=== PATIENT | male | born 1960 | race African-American/Black ===

== ENCOUNTER 2023-01-03 15:33 | Inpatient (IN) | payer OTHER ==
[2023-01-03 16:23] VITALS: BMI 20.8
[2023-01-03] MEDS ORDERED: DICYCLOMINE HCL 10 MG CAPSULE PO PRN (16:36)
[2023-01-03] MEDS ORDERED: POLYETHYLENE GLYCOL (HEALTHYLAX) 3350 17 GM PACKET PO PRN (16:36)
[2023-01-03] MEDS ORDERED: MAG HYDROX/AL HYDROX/SIMETH 30 ML UNIT-DOSE CUP PO PRN (16:36)
[2023-01-03] MEDS ORDERED: BENZOCAINE/MENTHOL (CHLORASEPTIC ) LOZENGE MM PRN (16:36)
[2023-01-03] MEDS ORDERED: MAGNESIUM HYDROX 2400MG/30ML ORAL SUSPENSION 30 ML CUP PO PRN (16:36)
[2023-01-03] MEDS ORDERED: LOPERAMIDE HCL 2 MG CAPSULE PO PRN (16:36)
[2023-01-03] MEDS ORDERED: BENZONATATE 200 MG CAPSULE PO PRN (16:36)
[2023-01-03] MEDS ORDERED: BISMUTH SUBSALICYLATE 524 MG/30 ML PO PRN (16:36)
[2023-01-03] MEDS ORDERED: guaiFENesin 600 MG TABLET.ER (FP) PO PRN (16:36)
[2023-01-03] MEDS ORDERED: ONDANSETRON *ODT* 4 MG TABLET SL PRN (16:36)
[2023-01-03] MEDS ORDERED: NICOTINE POLACRILEX 2 MG GUM BUC PRN (16:36)
[2023-01-03] MEDS ORDERED: P-EPHED 60MG/TRIPROLIDI 2.5MG TABLET PO PRN (16:36)
[2023-01-03] MEDS: IBUPROFEN 600 MG TABLET (FP) PO PRN (17:50)
[2023-01-03] MEDS: MELATONIN 5 MG TABLETS PO SCH (22:13)
[2023-01-03] MEDS: THIAMINE HCL 100 MG TABLET (FP) PO SCH (22:13)
[2023-01-04] MEDS: IBUPROFEN 600 MG TABLET (FP) PO PRN ×2 (05:51→13:35)
[2023-01-04] MEDS: ACETAMINOPHEN 325 MG TABLET (FP) PO PRN (10:35)
[2023-01-04] MEDS: PRENATAL VITAMINS W/ FOLIC ACID TABLET (FP) PO SCH (10:35)
[2023-01-04 11:35] LABS: HEMATOCRIT 41.8 % (35.4-49); HEMOGLOBIN 14.2 GM/dL (11.7-16.9); MCH 32.7 pg (25.7-33.7); MEAN CELL VOLUME 96.3 fl (80-96); MEAN PLT VOLUME 8.1 fl (7.5-11.1); PLATELET COUNT 259 10^3/uL (134-434); RBC 4.35 M/mm3 (4.00-5.60); RDW 14.1 % (11.9-15.9); WHITE BLOOD COUNT 3.8 K/mm3 (4.0-10.0)
[2023-01-04 11:46] LABS: POTASSIUM 3.9 mmol/L (3.5-5.1)
[2023-01-04 11:51] LABS: BLOOD UREA NITROGEN 9.4 mg/dL (7-18)
[2023-01-04 11:54] LABS: ALBUMIN 3.7 g/dl (3.4-5.0)
[2023-01-04 11:55] LABS: CALCIUM 9.9 mg/dL (8.5-10.1)
[2023-01-04 11:58] LABS: CREATININE 0.8 mg/dL (0.55-1.3)
[2023-01-04 12:00] LABS: BILIRUBIN,TOTAL 1.1 mg/dL (0.2-1); TOT PROT 6.7 g/dl (6.4-8.2)
[2023-01-04] MEDS ORDERED: LORazepam 1 MG TABLET PO PRN (13:39)
[2023-01-04] MEDS: LORazepam 2 MG TABLET PO SCH ×2 (17:17→22:23)
[2023-01-04] MEDS: MELATONIN 5 MG TABLETS PO SCH (22:23)
[2023-01-04] MEDS: THIAMINE HCL 100 MG TABLET (FP) PO SCH (22:23)
[2023-01-05] MEDS: LORazepam 2 MG TABLET PO SCH ×4 (06:00→22:13)
[2023-01-05] MEDS: IBUPROFEN 600 MG TABLET (FP) PO PRN (06:01)
[2023-01-05] MEDS: PRENATAL VITAMINS W/ FOLIC ACID TABLET (FP) PO SCH (10:34)
[2023-01-05] MEDS: BACITRACIN 0.9 GM PACKET TP SCH (15:46)
[2023-01-05] MEDS: MELATONIN 5 MG TABLETS PO SCH (22:13)
[2023-01-05] MEDS: THIAMINE HCL 100 MG TABLET (FP) PO SCH (22:13)
[2023-01-06] MEDS: IBUPROFEN 600 MG TABLET (FP) PO PRN (05:30)
[2023-01-06] MEDS: LORazepam 1 MG TABLET PO SCH ×4 (05:43→22:09)
[2023-01-06] MEDS: PRENATAL VITAMINS W/ FOLIC ACID TABLET (FP) PO SCH (10:15)
[2023-01-06] MEDS: ACETAMINOPHEN 325 MG TABLET (FP) PO PRN (10:18)
[2023-01-06] MEDS: BACITRACIN 0.9 GM PACKET TP SCH ×2 (11:01→11:02)
[2023-01-06] MEDS: IBUPROFEN 400 MG TABLET (FP) PO PRN (17:56)
[2023-01-06] MEDS: THIAMINE HCL 100 MG TABLET (FP) PO SCH (22:08)
[2023-01-06] MEDS: MELATONIN 5 MG TABLETS PO SCH (22:08)
[2023-01-07] MEDS ORDERED: LORazepam 0.5 MG TABLET PO PRN
[2023-01-07] MEDS: LORazepam 0.5 MG TABLET PO SCH ×4 (05:51→22:07)
[2023-01-07] MEDS: ACETAMINOPHEN 325 MG TABLET (FP) PO PRN (10:07)
[2023-01-07] MEDS: BACITRACIN 0.9 GM PACKET TP SCH (10:07)
[2023-01-07] MEDS: PRENATAL VITAMINS W/ FOLIC ACID TABLET (FP) PO SCH (10:07)
[2023-01-07] MEDS: IBUPROFEN 600 MG TABLET (FP) PO PRN (17:34)
[2023-01-07] MEDS: THIAMINE HCL 100 MG TABLET (FP) PO SCH (22:07)
[2023-01-07] MEDS: MELATONIN 5 MG TABLETS PO SCH (22:07)
[2023-01-08] MEDS ORDERED: LORazepam 0.5 MG TABLET PO ONE (05:00)
[2023-01-08] MEDS: IBUPROFEN 400 MG TABLET (FP) PO PRN (05:42)
[2023-01-08 09:23] VITALS: BP 101/61; PULSE 76; RESP 16; TEMP 97.9
[2023-01-08] MEDS: BACITRACIN 0.9 GM PACKET TP SCH (09:40)
[2023-01-08] MEDS: PRENATAL VITAMINS W/ FOLIC ACID TABLET (FP) PO SCH (09:40)
== END 2023-01-08 10:15 | disposition home or self-care (01) | DRG 774 ==
LOC: YASAS 15:33 → Y3N 16:51
PROVIDERS: ADMIT Allergy & Immunology; ATTEND Surgery
PROC: HZ2ZZZZ Detoxification Services for Substance Abuse Treatment (ICD-10-PCS; principal; 2023-01-03)
DX: F10.230 Alcohol dependence with withdrawal, uncomplicated (principal); F14.20 Cocaine dependence, uncomplicated; F17.210 Nicotine dependence, cigarettes, uncomplicated; Z86.19 Personal history of other infectious and parasitic diseases
CPT/HCPCS: 36415; 80053; 85027; 86593; 86780; 87635

== ENCOUNTER 2023-03-04 17:56 | Inpatient (IN) | payer OTHER ==
[2023-03-04 18:44] VITALS: BMI 19.9
[2023-03-04] MEDS ORDERED: LOPERAMIDE HCL 2 MG CAPSULE PO PRN (19:20)
[2023-03-04] MEDS ORDERED: DICYCLOMINE HCL 10 MG CAPSULE PO PRN (19:20)
[2023-03-04] MEDS ORDERED: POLYETHYLENE GLYCOL (HEALTHYLAX) 3350 17 GM PACKET PO PRN (19:20)
[2023-03-04] MEDS ORDERED: NALOXONE HCL 0.4 MG/ML VIAL IM PRN (19:20)
[2023-03-04] MEDS ORDERED: IBUPROFEN 400 MG TABLET (FP) PO PRN (19:20)
[2023-03-04] MEDS ORDERED: NALOXONE HCL (KLOXXADO) 8 MG SPRAY NS PRN (19:20)
[2023-03-04] MEDS ORDERED: BENZONATATE 200 MG CAPSULE PO PRN (19:20)
[2023-03-04] MEDS ORDERED: guaiFENesin 600 MG TABLET.ER (FP) PO PRN (19:20)
[2023-03-04] MEDS ORDERED: ONDANSETRON *ODT* 4 MG TABLET SL PRN (19:20)
[2023-03-04] MEDS ORDERED: BISMUTH SUBSALICYLATE 524 MG/30 ML PO PRN (19:20)
[2023-03-04] MEDS ORDERED: BENZOCAINE/MENTHOL (CHLORASEPTIC ) LOZENGE MM PRN (19:20)
[2023-03-04] MEDS ORDERED: MAG HYDROX/AL HYDROX/SIMETH 30 ML UNIT-DOSE CUP PO PRN (19:20)
[2023-03-04] MEDS ORDERED: ACETAMINOPHEN 325 MG TABLET (FP) PO PRN (19:20)
[2023-03-04] MEDS: THIAMINE HCL 100 MG TABLET (FP) PO SCH (22:18)
[2023-03-04] MEDS: METHOCARBAMOL 500 MG TABLET PO PRN (22:18)
[2023-03-04] MEDS: hydrOXYzine PAMOATE 25 MG CAPSULE (FP) PO PRN (22:18)
[2023-03-04] MEDS: MELATONIN 5 MG TABLETS PO SCH (22:18)
[2023-03-05] MEDS: PRENATAL VITAMINS W/ FOLIC ACID TABLET (FP) PO SCH (09:41)
[2023-03-05 11:19] LABS: HEMATOCRIT 39.2 % (35.4-49); HEMOGLOBIN 13.3 GM/dL (11.7-16.9); MCH 32.7 pg (25.7-33.7); MCHC 33.9 g/dl (32.0-35.9); MEAN CELL VOLUME 96.5 fl (80-96); MEAN PLT VOLUME 8.5 fl (7.5-11.1); PLATELET COUNT 268 10^3/uL (134-434); RBC 4.07 M/mm3 (4.00-5.60); WHITE BLOOD COUNT 5.2 K/mm3 (4.0-10.0)
[2023-03-05 11:22] LABS: POTASSIUM 4.2 mmol/L (3.5-5.1)
[2023-03-05 11:27] LABS: ALBUMIN 3.4 g/dl (3.4-5.0); BLOOD UREA NITROGEN 14.2 mg/dL (7-18); CALCIUM 9.2 mg/dL (8.5-10.1)
[2023-03-05 11:31] LABS: BILIRUBIN,TOTAL 0.9 mg/dL (0.2-1)
[2023-03-05 11:33] LABS: TOT PROT 6.8 g/dl (6.4-8.2)
[2023-03-05] MEDS ORDERED: LORazepam 1 MG TABLET PO PRN (13:36)
[2023-03-05] MEDS: MAGNESIUM HYDROX 2400MG/30ML ORAL SUSPENSION 30 ML CUP PO PRN (14:14)
[2023-03-05] MEDS: hydrOXYzine PAMOATE 25 MG CAPSULE (FP) PO PRN (14:14)
[2023-03-05] MEDS: LORazepam 2 MG TABLET PO SCH ×2 (17:16→18:05)
[2023-03-05] MEDS ORDERED: LORazepam 1 MG TABLET PO SCH (17:21)
[2023-03-05] MEDS: MELATONIN 5 MG TABLETS PO SCH (22:08)
[2023-03-05] MEDS: THIAMINE HCL 100 MG TABLET (FP) PO SCH (22:08)
[2023-03-06] MEDS: LORazepam 1 MG TABLET PO SCH ×4 (05:30→22:02)
[2023-03-06] MEDS: PRENATAL VITAMINS W/ FOLIC ACID TABLET (FP) PO SCH (10:08)
[2023-03-06] MEDS: METHOCARBAMOL 500 MG TABLET PO PRN (10:08)
[2023-03-06] MEDS: hydrOXYzine PAMOATE 25 MG CAPSULE (FP) PO PRN (10:08)
[2023-03-06] MEDS: MAGNESIUM HYDROX 2400MG/30ML ORAL SUSPENSION 30 ML CUP PO PRN (17:06)
[2023-03-06] MEDS: THIAMINE HCL 100 MG TABLET (FP) PO SCH (22:02)
[2023-03-06] MEDS: MELATONIN 5 MG TABLETS PO SCH (22:03)
[2023-03-06] MEDS: IBUPROFEN 600 MG TABLET (FP) PO PRN (22:05)
[2023-03-07] MEDS: LORazepam 0.5 MG TABLET PO SCH ×4 (05:23→22:00)
[2023-03-07] MEDS: METHOCARBAMOL 500 MG TABLET PO PRN (10:11)
[2023-03-07] MEDS: PRENATAL VITAMINS W/ FOLIC ACID TABLET (FP) PO SCH (10:11)
[2023-03-07] MEDS: MAGNESIUM HYDROX 2400MG/30ML ORAL SUSPENSION 30 ML CUP PO PRN (12:46)
[2023-03-07 16:50] VITALS: PULSE 63; RESP 17
[2023-03-07] MEDS: IBUPROFEN 600 MG TABLET (FP) PO PRN (21:59)
[2023-03-07] MEDS: MELATONIN 5 MG TABLETS PO SCH (22:00)
[2023-03-07] MEDS: THIAMINE HCL 100 MG TABLET (FP) PO SCH (22:00)
[2023-03-08] MEDS ORDERED: LORazepam 0.5 MG TABLET PO ONE (05:00)
[2023-03-08 06:32] VITALS: BP 108/75; TEMP 97.8
[2023-03-08] MEDS: PRENATAL VITAMINS W/ FOLIC ACID TABLET (FP) PO SCH (09:05)
== END 2023-03-08 09:08 | disposition home or self-care (01) | DRG 897 ==
LOC: YASAS 17:56 → Y6N 19:29
PROVIDERS: ADMIT Allergy & Immunology; ATTEND Surgery
PROC: HZ2ZZZZ Detoxification Services for Substance Abuse Treatment (ICD-10-PCS; principal; 2023-03-04)
DX: F10.230 Alcohol dependence with withdrawal, uncomplicated (principal); F14.20 Cocaine dependence, uncomplicated; F17.210 Nicotine dependence, cigarettes, uncomplicated; G47.00 Insomnia, unspecified
CPT/HCPCS: 36415; 80053; 85027; 86593; 86780; 87635; 87811

== ENCOUNTER 2023-04-06 16:49 | Inpatient (IN) | payer OTHER ==
[2023-04-06 17:23] VITALS: BMI 22.1
[2023-04-06] MEDS ORDERED: P-EPHED 60MG/TRIPROLIDI 2.5MG TABLET PO PRN (20:40)
[2023-04-06] MEDS ORDERED: BENZONATATE 200 MG CAPSULE PO PRN (20:40)
[2023-04-06] MEDS ORDERED: MAG HYDROX/AL HYDROX/SIMETH 30 ML UNIT-DOSE CUP PO PRN (20:40)
[2023-04-06] MEDS ORDERED: COLLOIDAL OATMEAL 1 BAR EACH TP PRN (20:40)
[2023-04-06] MEDS ORDERED: ACETAMINOPHEN 325 MG TABLET (FP) PO PRN (20:40)
[2023-04-06] MEDS ORDERED: POLYETHYLENE GLYCOL (HEALTHYLAX) 3350 17 GM PACKET PO PRN (20:40)
[2023-04-06] MEDS ORDERED: BENZOCAINE/MENTHOL (CHLORASEPTIC ) LOZENGE MM PRN (20:40)
[2023-04-06] MEDS ORDERED: LOPERAMIDE HCL 2 MG CAPSULE PO PRN (20:40)
[2023-04-06] MEDS ORDERED: guaiFENesin 600 MG TABLET.ER (FP) PO PRN (20:40)
[2023-04-06] MEDS: THIAMINE HCL 100 MG TABLET (FP) PO SCH (21:23)
[2023-04-06] MEDS: MELATONIN 5 MG TABLETS PO SCH (21:23)
[2023-04-07] MEDS: PRENATAL VITAMINS W/ FOLIC ACID TABLET (FP) PO SCH (10:03)
[2023-04-07] MEDS: IBUPROFEN 400 MG TABLET (FP) PO PRN (10:05)
[2023-04-07 10:59] LABS: HEMATOCRIT 40.6 % (35.4-49); HEMOGLOBIN 13.5 GM/dL (11.7-16.9); MCH 32.5 pg (25.7-33.7); MCHC 33.3 g/dl (32.0-35.9); MEAN CELL VOLUME 97.6 fl (80-96); PLATELET COUNT 250 10^3/uL (134-434); RBC 4.16 M/mm3 (4.00-5.60); RDW 15.1 % (11.9-15.9)
[2023-04-07 11:19] LABS: ALBUMIN 3.6 g/dl (3.4-5.0)
[2023-04-07 11:20] LABS: CREATININE 0.9 mg/dL (0.55-1.3); TOT PROT 7.2 g/dl (6.4-8.2)
[2023-04-07 11:21] LABS: BILIRUBIN,TOTAL 1.3 mg/dL (0.2-1); CALCIUM 9.3 mg/dL (8.5-10.1)
[2023-04-07] MEDS: MAGNESIUM HYDROX 2400MG/30ML ORAL SUSPENSION 30 ML CUP PO PRN (11:28)
[2023-04-07 14:30] LABS: PH,URINE 5.5 (5.0-8.0); URINE APPEARANCE Clear; URINE BILIRUBIN Negative (NEGATIVE); URINE COLOR Yellow; URINE GLUCOSE (UA) Negative (NEGATIVE); URINE KETONE Negative (NEGATIVE); URINE LEUK ESTERASE Negative (NEGATIVE); URINE NITRITE Negative (NEGATIVE); URINE PROTEIN Negative (NEGATIVE)
[2023-04-07] MEDS: THIAMINE HCL 100 MG TABLET (FP) PO SCH (21:16)
[2023-04-07] MEDS: MELATONIN 5 MG TABLETS PO SCH (21:16)
[2023-04-08] MEDS: PRENATAL VITAMINS W/ FOLIC ACID TABLET (FP) PO SCH (09:47)
[2023-04-08] MEDS: IBUPROFEN 600 MG TABLET (FP) PO PRN (09:49)
[2023-04-08] MEDS: MAGNESIUM HYDROX 2400MG/30ML ORAL SUSPENSION 30 ML CUP PO PRN (13:28)
[2023-04-08] MEDS: BACITRACIN 0.9 GM PACKET TP PRN (15:23)
[2023-04-08] MEDS: MELATONIN 5 MG TABLETS PO SCH (21:16)
[2023-04-08] MEDS: THIAMINE HCL 100 MG TABLET (FP) PO SCH (21:16)
[2023-04-09] MEDS: PRENATAL VITAMINS W/ FOLIC ACID TABLET (FP) PO SCH (10:19)
[2023-04-09] MEDS: IBUPROFEN 600 MG TABLET (FP) PO PRN (10:20)
[2023-04-09] MEDS: BACITRACIN 0.9 GM PACKET TP PRN (10:21)
[2023-04-09] MEDS: MAGNESIUM HYDROX 2400MG/30ML ORAL SUSPENSION 30 ML CUP PO PRN (15:55)
[2023-04-09] MEDS: THIAMINE HCL 100 MG TABLET (FP) PO SCH (21:19)
[2023-04-09] MEDS: MELATONIN 5 MG TABLETS PO SCH (21:19)
[2023-04-10] MEDS: PRENATAL VITAMINS W/ FOLIC ACID TABLET (FP) PO SCH (10:12)
[2023-04-10 10:30] LABS: INR 1.02 (0.83-1.09); PROTHROMBIN TIME (PATIENT) 11.8 SEC (9.7-13.0)
[2023-04-10] MEDS: BACITRACIN 0.9 GM PACKET TP PRN (10:47)
[2023-04-10] MEDS: IBUPROFEN 400 MG TABLET (FP) PO PRN (10:47)
[2023-04-10] MEDS ORDERED: LACTULOSE 20 GM/30 ML UDC (FOR ORAL USE ONLY) PO PRN (10:59)
[2023-04-10] MEDS: THIAMINE HCL 100 MG TABLET (FP) PO SCH (21:12)
[2023-04-10] MEDS: LACTULOSE 20 GM/30 ML UDC (FOR ORAL USE ONLY) PO SCH (21:12)
[2023-04-10] MEDS: MELATONIN 5 MG TABLETS PO SCH (21:12)
[2023-04-11] MEDS: LACTULOSE 20 GM/30 ML UDC (FOR ORAL USE ONLY) PO SCH ×3 (06:12→21:21)
[2023-04-11] MEDS: PRENATAL VITAMINS W/ FOLIC ACID TABLET (FP) PO SCH (10:27)
[2023-04-11] MEDS: THIAMINE HCL 100 MG TABLET (FP) PO SCH (21:22)
[2023-04-11] MEDS: MELATONIN 5 MG TABLETS PO SCH (21:22)
[2023-04-12] MEDS: LACTULOSE 20 GM/30 ML UDC (FOR ORAL USE ONLY) PO SCH ×3 (06:08→21:07)
[2023-04-12] MEDS: PRENATAL VITAMINS W/ FOLIC ACID TABLET (FP) PO SCH (09:36)
[2023-04-12] MEDS: THIAMINE HCL 100 MG TABLET (FP) PO SCH (21:07)
[2023-04-12] MEDS: MELATONIN 5 MG TABLETS PO SCH (21:07)
[2023-04-13] MEDS: LACTULOSE 20 GM/30 ML UDC (FOR ORAL USE ONLY) PO SCH ×3 (06:08→21:11)
[2023-04-13] MEDS: PRENATAL VITAMINS W/ FOLIC ACID TABLET (FP) PO SCH (09:33)
[2023-04-13] MEDS: BACITRACIN 0.9 GM PACKET TP PRN (21:11)
[2023-04-13] MEDS: THIAMINE HCL 100 MG TABLET (FP) PO SCH (21:11)
[2023-04-13] MEDS: MELATONIN 5 MG TABLETS PO SCH (21:11)
[2023-04-14] MEDS: LACTULOSE 20 GM/30 ML UDC (FOR ORAL USE ONLY) PO SCH (06:19)
[2023-04-14 06:52] VITALS: BP 108/75; PULSE 69; RESP 16; TEMP 97.3
[2023-04-14] MEDS: PRENATAL VITAMINS W/ FOLIC ACID TABLET (FP) PO SCH (09:42)
== END 2023-04-14 10:22 | disposition home or self-care (01) | DRG 897 ==
LOC: YASAS 16:49 → Y3W 20:25
PROVIDERS: ADMIT Allergy & Immunology; ATTEND Psychiatry & Neurology Pain Medicine
DX: F10.20 Alcohol dependence, uncomplicated (principal); F14.20 Cocaine dependence, uncomplicated; E72.20 Disorder of urea cycle metabolism, unspecified; F17.210 Nicotine dependence, cigarettes, uncomplicated; D75.89 Other specified diseases of blood and blood-forming organs; R79.89 Other specified abnormal findings of blood chemistry; Z86.19 Personal history of other infectious and parasitic diseases
CPT/HCPCS: 36415; 80053; 81003; 82140; 82652; 83735; 85027; 85610; 86593; 86780; 86803; 87635

== ENCOUNTER 2023-06-16 12:43 | Inpatient (IN) | payer OTHER ==
[2023-06-16 13:13] VITALS: BMI 19.2
[2023-06-16] MEDS ORDERED: BENZONATATE 200 MG CAPSULE PO PRN (13:59)
[2023-06-16] MEDS ORDERED: POLYETHYLENE GLYCOL (HEALTHYLAX) 3350 17 GM PACKET PO PRN (13:59)
[2023-06-16] MEDS ORDERED: LOPERAMIDE HCL 2 MG CAPSULE PO PRN (13:59)
[2023-06-16] MEDS ORDERED: COLLOIDAL OATMEAL 1 BAR EACH TP PRN (13:59)
[2023-06-16] MEDS ORDERED: MAGNESIUM HYDROX 2400MG/30ML ORAL SUSPENSION 30 ML CUP PO PRN (13:59)
[2023-06-16] MEDS ORDERED: NALOXONE HCL 0.4 MG/ML VIAL IM PRN (13:59)
[2023-06-16] MEDS ORDERED: ACETAMINOPHEN 325 MG TABLET (FP) PO PRN (13:59)
[2023-06-16] MEDS ORDERED: MAG HYDROX/AL HYDROX/SIMETH 30 ML UNIT-DOSE CUP PO PRN (13:59)
[2023-06-16] MEDS ORDERED: NALOXONE HCL (KLOXXADO) 8 MG SPRAY NS PRN (13:59)
[2023-06-16] MEDS: PRENATAL VITAMINS W/ FOLIC ACID TABLET (FP) PO SCH (14:47)
[2023-06-16] MEDS: THIAMINE HCL 100 MG TABLET (FP) PO SCH (21:07)
[2023-06-16] MEDS: MELATONIN 5 MG TABLETS PO SCH (21:07)
[2023-06-16] MEDS: guaiFENesin 600 MG TABLET.ER (FP) PO PRN (21:08)
[2023-06-17] MEDS: guaiFENesin 600 MG TABLET.ER (FP) PO PRN ×2 (09:34→21:50)
[2023-06-17] MEDS: PRENATAL VITAMINS W/ FOLIC ACID TABLET (FP) PO SCH (09:34)
[2023-06-17 12:46] LABS: POTASSIUM 4.1 mmol/L (3.5-5.1)
[2023-06-17 12:55] LABS: BLOOD UREA NITROGEN 9.6 mg/dL (7-18); CALCIUM 9.2 mg/dL (8.5-10.1)
[2023-06-17 12:56] LABS: ALBUMIN 3.4 g/dl (3.4-5.0)
[2023-06-17 12:58] LABS: HEMATOCRIT 39.2 % (35.4-49); HEMOGLOBIN 13.3 GM/dL (11.7-16.9); MCH 32.5 pg (25.7-33.7); MCHC 33.9 g/dl (32.0-35.9); MEAN CELL VOLUME 95.9 fl (80-96); MEAN PLT VOLUME 7.7 fl (7.5-11.1); PLATELET COUNT 315 10^3/uL (134-434); RBC 4.08 M/mm3 (4.00-5.60); RDW 14.8 % (11.9-15.9); WHITE BLOOD COUNT 4.3 K/mm3 (4.0-10.0)
[2023-06-17 12:59] LABS: CREATININE 0.9 mg/dL (0.55-1.3)
[2023-06-17 13:00] LABS: BILIRUBIN,TOTAL 0.5 mg/dL (0.2-1); TOT PROT 6.8 g/dl (6.4-8.2)
[2023-06-17 13:50] LABS: SYPHILIS W/ RPR CONF REACTIVE (NONREACTIVE)
[2023-06-17] MEDS: THIAMINE HCL 100 MG TABLET (FP) PO SCH (21:45)
[2023-06-17] MEDS: MELATONIN 5 MG TABLETS PO SCH (21:45)
[2023-06-18] MEDS: guaiFENesin 200 MG/10 ML 10 ML UNIT-DOSE CUPS PO PRN ×2 (09:45→15:33)
[2023-06-18] MEDS: PRENATAL VITAMINS W/ FOLIC ACID TABLET (FP) PO SCH (09:45)
[2023-06-18] MEDS: BENZOCAINE/MENTHOL (CHLORASEPTIC ) LOZENGE MM PRN ×2 (09:47→19:12)
[2023-06-18] MEDS: MELATONIN 5 MG TABLETS PO SCH (21:16)
[2023-06-18] MEDS: THIAMINE HCL 100 MG TABLET (FP) PO SCH (21:16)
[2023-06-19] MEDS: guaiFENesin 200 MG/10 ML 10 ML UNIT-DOSE CUPS PO PRN ×2 (06:34→13:26)
[2023-06-19] MEDS: PRENATAL VITAMINS W/ FOLIC ACID TABLET (FP) PO SCH (09:46)
[2023-06-19] MEDS: BENZOCAINE/MENTHOL (CHLORASEPTIC ) LOZENGE MM PRN ×2 (09:47→21:21)
[2023-06-19 13:17] LABS: URINE APPEARANCE CLEAR; URINE BILIRUBIN NEGATIVE (NEGATIVE); URINE COLOR YELLOW; URINE GLUCOSE (UA) NEGATIVE (NEGATIVE); URINE KETONE NEGATIVE (NEGATIVE); URINE LEUK ESTERASE NEGATIVE (NEGATIVE); URINE NITRITE NEGATIVE (NEGATIVE); URINE PROTEIN NEGATIVE (NEGATIVE); URINE UROBILINOGEN 0.2 mg/dL (0.2-1.0)
[2023-06-19] MEDS: hydrOXYzine PAMOATE 25 MG CAPSULE (FP) PO PRN (21:22)
[2023-06-19] MEDS: MELATONIN 5 MG TABLETS PO SCH (21:22)
[2023-06-19] MEDS: THIAMINE HCL 100 MG TABLET (FP) PO SCH (21:22)
[2023-06-20] MEDS: BENZOCAINE/MENTHOL (CHLORASEPTIC ) LOZENGE MM PRN ×2 (06:13→21:46)
[2023-06-20] MEDS: guaiFENesin 200 MG/10 ML 10 ML UNIT-DOSE CUPS PO PRN ×3 (06:13→19:28)
[2023-06-20] MEDS: PRENATAL VITAMINS W/ FOLIC ACID TABLET (FP) PO SCH (09:42)
[2023-06-20] MEDS ORDERED: AZITHROMYCIN 250 MG TABLET PO ONE (14:27)
[2023-06-20] MEDS: MELATONIN 5 MG TABLETS PO SCH (21:45)
[2023-06-20] MEDS: hydrOXYzine PAMOATE 25 MG CAPSULE (FP) PO PRN (21:45)
[2023-06-20] MEDS: THIAMINE HCL 100 MG TABLET (FP) PO SCH (21:46)
[2023-06-21] MEDS: BENZOCAINE/MENTHOL (CHLORASEPTIC ) LOZENGE MM PRN ×2 (06:17→16:40)
[2023-06-21] MEDS: guaiFENesin 200 MG/10 ML 10 ML UNIT-DOSE CUPS PO PRN ×3 (06:18→21:25)
[2023-06-21] MEDS: PRENATAL VITAMINS W/ FOLIC ACID TABLET (FP) PO SCH (09:52)
[2023-06-21] MEDS: AZITHROMYCIN 250 MG TABLET PO SCH (11:23)
[2023-06-21] MEDS: THIAMINE HCL 100 MG TABLET (FP) PO SCH (21:23)
[2023-06-21] MEDS: MELATONIN 5 MG TABLETS PO SCH (21:23)
[2023-06-21] MEDS: hydrOXYzine PAMOATE 25 MG CAPSULE (FP) PO PRN (21:24)
[2023-06-22] MEDS: guaiFENesin 200 MG/10 ML 10 ML UNIT-DOSE CUPS PO PRN ×3 (06:49→21:11)
[2023-06-22] MEDS: BENZOCAINE/MENTHOL (CHLORASEPTIC ) LOZENGE MM PRN ×2 (06:49→17:29)
[2023-06-22] MEDS: AZITHROMYCIN 250 MG TABLET PO SCH (10:02)
[2023-06-22] MEDS: PRENATAL VITAMINS W/ FOLIC ACID TABLET (FP) PO SCH (10:02)
[2023-06-22] MEDS: MELATONIN 5 MG TABLETS PO SCH (21:10)
[2023-06-22] MEDS: THIAMINE HCL 100 MG TABLET (FP) PO SCH (21:10)
[2023-06-23] MEDS: PRENATAL VITAMINS W/ FOLIC ACID TABLET (FP) PO SCH (09:31)
[2023-06-23] MEDS: AZITHROMYCIN 250 MG TABLET PO SCH (09:31)
[2023-06-23] MEDS: guaiFENesin 200 MG/10 ML 10 ML UNIT-DOSE CUPS PO PRN (09:32)
[2023-06-23] MEDS: LACTULOSE 20 GM/30 ML UDC (FOR ORAL USE ONLY) PO PRN (11:37)
[2023-06-23] MEDS: THIAMINE HCL 100 MG TABLET (FP) PO SCH (21:05)
[2023-06-23] MEDS: MELATONIN 5 MG TABLETS PO SCH (21:05)
[2023-06-23] MEDS: hydrOXYzine PAMOATE 25 MG CAPSULE (FP) PO PRN (21:06)
[2023-06-24] MEDS: PRENATAL VITAMINS W/ FOLIC ACID TABLET (FP) PO SCH (09:18)
[2023-06-24] MEDS: AZITHROMYCIN 250 MG TABLET PO SCH (09:18)
[2023-06-24] MEDS: guaiFENesin 200 MG/10 ML 10 ML UNIT-DOSE CUPS PO PRN ×2 (09:20→21:10)
[2023-06-24] MEDS: IBUPROFEN 600 MG TABLET (FP) PO PRN (11:57)
[2023-06-24] MEDS: hydrOXYzine PAMOATE 25 MG CAPSULE (FP) PO PRN (21:09)
[2023-06-24] MEDS: MELATONIN 5 MG TABLETS PO SCH (21:09)
[2023-06-24] MEDS: THIAMINE HCL 100 MG TABLET (FP) PO SCH (21:09)
[2023-06-25] MEDS: LACTULOSE 20 GM/30 ML UDC (FOR ORAL USE ONLY) PO PRN (06:17)
[2023-06-25] MEDS: BENZOCAINE/MENTHOL (CHLORASEPTIC ) LOZENGE MM PRN ×2 (06:17→14:58)
[2023-06-25] MEDS: guaiFENesin 200 MG/10 ML 10 ML UNIT-DOSE CUPS PO PRN ×2 (06:17→14:58)
[2023-06-25] MEDS: PRENATAL VITAMINS W/ FOLIC ACID TABLET (FP) PO SCH (09:38)
[2023-06-25] MEDS: AZITHROMYCIN 250 MG TABLET PO SCH (09:38)
[2023-06-25] MEDS: IBUPROFEN 600 MG TABLET (FP) PO PRN (18:09)
[2023-06-25] MEDS: THIAMINE HCL 100 MG TABLET (FP) PO SCH (21:10)
[2023-06-25] MEDS: MELATONIN 5 MG TABLETS PO SCH (21:10)
[2023-06-25] MEDS: hydrOXYzine PAMOATE 25 MG CAPSULE (FP) PO PRN (21:11)
[2023-06-26] MEDS: guaiFENesin 200 MG/10 ML 10 ML UNIT-DOSE CUPS PO PRN ×2 (06:10→21:10)
[2023-06-26] MEDS: BENZOCAINE/MENTHOL (CHLORASEPTIC ) LOZENGE MM PRN ×2 (06:10→21:12)
[2023-06-26 06:31] VITALS: TEMP 97.9
[2023-06-26] MEDS: PRENATAL VITAMINS W/ FOLIC ACID TABLET (FP) PO SCH (09:31)
[2023-06-26] MEDS: IBUPROFEN 400 MG TABLET (FP) PO PRN (09:32)
[2023-06-26] MEDS ORDERED: BACLOFEN 10 MG TABLET (FP) PO PRN (10:20)
[2023-06-26] MEDS: LACTULOSE 20 GM/30 ML UDC (FOR ORAL USE ONLY) PO PRN (13:33)
[2023-06-26] MEDS: THIAMINE HCL 100 MG TABLET (FP) PO SCH (21:10)
[2023-06-26] MEDS: MELATONIN 5 MG TABLETS PO SCH (21:10)
[2023-06-26] MEDS: hydrOXYzine PAMOATE 25 MG CAPSULE (FP) PO PRN (21:11)
[2023-06-27] MEDS: BENZOCAINE/MENTHOL (CHLORASEPTIC ) LOZENGE MM PRN (09:53)
[2023-06-27] MEDS: PRENATAL VITAMINS W/ FOLIC ACID TABLET (FP) PO SCH (09:53)
[2023-06-27] MEDS: guaiFENesin 200 MG/10 ML 10 ML UNIT-DOSE CUPS PO PRN ×2 (09:53→21:09)
[2023-06-27] MEDS: LACTULOSE 20 GM/30 ML UDC (FOR ORAL USE ONLY) PO PRN (16:32)
[2023-06-27] MEDS: IBUPROFEN 400 MG TABLET (FP) PO PRN (17:05)
[2023-06-27] MEDS: MELATONIN 5 MG TABLETS PO SCH (21:06)
[2023-06-27] MEDS: THIAMINE HCL 100 MG TABLET (FP) PO SCH (21:06)
[2023-06-27] MEDS: hydrOXYzine PAMOATE 25 MG CAPSULE (FP) PO PRN (21:08)
[2023-06-28 06:37] VITALS: BP 108/78; PULSE 83; RESP 16
[2023-06-28] MEDS: PRENATAL VITAMINS W/ FOLIC ACID TABLET (FP) PO SCH (09:10)
[2023-06-28] MEDS: guaiFENesin 200 MG/10 ML 10 ML UNIT-DOSE CUPS PO PRN (09:11)
[2023-06-28] MEDS: BENZOCAINE/MENTHOL (CHLORASEPTIC ) LOZENGE MM PRN (09:11)
== END 2023-06-28 09:19 | disposition home or self-care (01) | DRG 895 ==
LOC: YASAS 12:43 → Y3E 17:10
PROVIDERS: ADMIT Allergy & Immunology; ATTEND Psychiatry & Neurology Pain Medicine
PROC: HZ42ZZZ Group Counseling for Substance Abuse Treatment, Cognitive-Behavioral (ICD-10-PCS; principal; 2023-06-16)
DX: F19.20 Other psychoactive substance dependence, uncomplicated (principal); F14.20 Cocaine dependence, uncomplicated; F10.20 Alcohol dependence, uncomplicated; F17.210 Nicotine dependence, cigarettes, uncomplicated; G47.00 Insomnia, unspecified; M62.830 Muscle spasm of back; Z86.19 Personal history of other infectious and parasitic diseases; Z87.01 Personal history of pneumonia (recurrent); Z99.89 Dependence on other enabling machines and devices
CPT/HCPCS: 0241U-QW; 36415; 80053; 81003; 82140; 85027; 86593; 86780; 86803; 87635; 87811; J0475

== ENCOUNTER 2023-08-16 18:29 | Inpatient (IN) | payer OTHER ==
[2023-08-16 21:03] VITALS: BMI 19.2
[2023-08-16] MEDS ORDERED: POLYETHYLENE GLYCOL (HEALTHYLAX) 3350 17 GM PACKET PO PRN (22:38)
[2023-08-16] MEDS ORDERED: BENZONATATE 200 MG CAPSULE PO PRN (22:38)
[2023-08-16] MEDS ORDERED: LOPERAMIDE HCL 2 MG CAPSULE PO PRN (22:38)
[2023-08-16] MEDS ORDERED: NALOXONE HCL (KLOXXADO) 8 MG SPRAY NS PRN (22:38)
[2023-08-16] MEDS ORDERED: NALOXONE HCL 0.4 MG/ML VIAL IM PRN (22:38)
[2023-08-16] MEDS ORDERED: guaiFENesin 600 MG TABLET.ER (FP) PO PRN (22:38)
[2023-08-16] MEDS ORDERED: MELATONIN 5 MG TABLETS ONE (23:22)
[2023-08-16] MEDS: MELATONIN 5 MG TABLETS PO SCH (23:32)
[2023-08-17] MEDS: MAGNESIUM HYDROX 2400MG/30ML ORAL SUSPENSION 30 ML CUP PO PRN (03:10)
[2023-08-17] MEDS: PRENATAL VITAMINS W/ FOLIC ACID TABLET (FP) PO SCH (09:32)
[2023-08-17] MEDS: IBUPROFEN 400 MG TABLET (FP) PO PRN (09:33)
[2023-08-17 11:31] LABS: HEMATOCRIT 36.6 % (35.4-49); HEMOGLOBIN 12.6 GM/dL (11.7-16.9); MCH 33.1 pg (25.7-33.7); MCHC 34.4 g/dl (32.0-35.9); MEAN CELL VOLUME 96.4 fl (80-96); MEAN PLT VOLUME 8.1 fl (7.5-11.1); PLATELET COUNT 271 10^3/uL (134-434); RDW 15.4 % (11.9-15.9); WHITE BLOOD COUNT 4.8 K/mm3 (4.0-10.0)
[2023-08-17 12:09] LABS: URINE APPEARANCE CLEAR; URINE BILIRUBIN NEGATIVE (NEGATIVE); URINE COLOR YELLOW; URINE GLUCOSE (UA) NEGATIVE (NEGATIVE); URINE KETONE NEGATIVE (NEGATIVE); URINE LEUK ESTERASE NEGATIVE (NEGATIVE); URINE NITRITE NEGATIVE (NEGATIVE); URINE PROTEIN NEGATIVE (NEGATIVE)
[2023-08-17 12:15] LABS: CALCIUM 9.3 mg/dL (8.5-10.1)
[2023-08-17 12:16] LABS: ALBUMIN 3.7 g/dl (3.4-5.0); BLOOD UREA NITROGEN 13.8 mg/dL (7-18)
[2023-08-17 12:18] LABS: CREATININE 0.9 mg/dL (0.55-1.3)
[2023-08-17 12:20] LABS: BILIRUBIN,TOTAL 0.5 mg/dL (0.2-1); TOT PROT 6.7 g/dl (6.4-8.2)
[2023-08-17] MEDS: MELATONIN 5 MG TABLETS PO SCH (21:34)
[2023-08-17] MEDS: THIAMINE HCL 100 MG TABLET (FP) PO SCH (21:35)
[2023-08-19] MEDS: ACETAMINOPHEN 325 MG TABLET (FP) PO PRN (10:31)
[2023-08-19] MEDS: BENZOCAINE/MENTHOL (CHLORASEPTIC ) LOZENGE MM PRN (10:32)
[2023-08-19] MEDS: IBUPROFEN 600 MG TABLET (FP) PO PRN (15:30)
[2023-08-20] MEDS: MAG HYDROX/AL HYDROX/SIMETH 30 ML UNIT-DOSE CUP PO PRN (09:58)
[2023-08-21] MEDS: guaiFENesin 200 MG/10 ML 10 ML UNIT-DOSE CUPS PO PRN (14:38)
[2023-08-25 07:32] VITALS: RESP 18
[2023-08-26 07:56] VITALS: BP 101/68; PULSE 82; TEMP 97.6
== END 2023-08-26 09:40 | disposition home or self-care (01) | DRG 895 ==
LOC: YASAS 18:29 → Y5N 08-17 01:42
PROVIDERS: ADMIT Allergy & Immunology; ATTEND Allergy & Immunology
PROC: HZ42ZZZ Group Counseling for Substance Abuse Treatment, Cognitive-Behavioral (ICD-10-PCS; principal; 2023-08-17)
DX: F10.20 Alcohol dependence, uncomplicated (principal); F14.20 Cocaine dependence, uncomplicated; F17.210 Nicotine dependence, cigarettes, uncomplicated; G47.00 Insomnia, unspecified; B33.8 Other specified viral diseases; B97.4 Respiratory syncytial virus as the cause of diseases classified elsewhere; M19.90 Unspecified osteoarthritis, unspecified site; Z86.19 Personal history of other infectious and parasitic diseases
CPT/HCPCS: 0241U-QW; 36415; 80053; 80305; 81003; 85027; 86593; 86780; 87635; 87811; 93005; 93010

== ENCOUNTER 2023-09-29 13:37 | Inpatient (IN) | payer OTHER ==
[2023-09-29 14:14] VITALS: BMI 20.3
[2023-09-29] MEDS ORDERED: guaiFENesin 600 MG TABLET.ER (FP) PO PRN (15:46)
[2023-09-29] MEDS ORDERED: ONDANSETRON *ODT* 4 MG TABLET SL PRN (15:46)
[2023-09-29] MEDS ORDERED: MAG HYDROX/AL HYDROX/SIMETH 30 ML UNIT-DOSE CUP PO PRN (15:46)
[2023-09-29] MEDS ORDERED: diazePAM 5 MG TABLET PO PRN (15:46)
[2023-09-29] MEDS ORDERED: IBUPROFEN 400 MG TABLET (FP) PO PRN (15:46)
[2023-09-29] MEDS ORDERED: ACETAMINOPHEN 325 MG TABLET (FP) PO PRN (15:46)
[2023-09-29] MEDS ORDERED: DICYCLOMINE HCL 10 MG CAPSULE PO PRN (15:46)
[2023-09-29] MEDS ORDERED: POLYETHYLENE GLYCOL (HEALTHYLAX) 3350 17 GM PACKET PO PRN (15:46)
[2023-09-29] MEDS ORDERED: BENZONATATE 200 MG CAPSULE PO PRN (15:46)
[2023-09-29] MEDS ORDERED: BENZOCAINE/MENTHOL (CHLORASEPTIC ) LOZENGE MM PRN (15:46)
[2023-09-29] MEDS ORDERED: NALOXONE HCL (KLOXXADO) 8 MG SPRAY NS PRN (15:46)
[2023-09-29] MEDS ORDERED: LOPERAMIDE HCL 2 MG CAPSULE PO PRN (15:46)
[2023-09-29] MEDS ORDERED: BISMUTH SUBSALICYLATE 524 MG/30 ML PO PRN (15:46)
[2023-09-29] MEDS ORDERED: NALOXONE HCL 0.4 MG/ML VIAL IM PRN (15:46)
[2023-09-29] MEDS: MAGNESIUM HYDROX 2400MG/30ML ORAL SUSPENSION 30 ML CUP PO PRN (16:42)
[2023-09-29] MEDS: diazePAM 5 MG TABLET PO SCH (16:42)
[2023-09-29] MEDS: MELATONIN 5 MG TABLETS PO SCH (22:29)
[2023-09-29] MEDS: THIAMINE HCL 100 MG TABLET (FP) PO SCH (22:29)
[2023-09-30] MEDS: PRENATAL VITAMINS W/ FOLIC ACID TABLET (FP) PO SCH (11:03)
[2023-09-30 14:59] LABS: CHLORIDE 107 mmol/L (98-107); POTASSIUM 3.9 mmol/L (3.5-5.1); SODIUM 140 mmol/L (136-145)
[2023-09-30 15:01] LABS: HEMATOCRIT 34.3 % (35.4-49); HEMOGLOBIN 11.9 GM/dL (11.7-16.9); MCH 33.8 pg (25.7-33.7); MCHC 34.7 g/dl (32.0-35.9); MEAN CELL VOLUME 97.3 fl (80-96); MEAN PLT VOLUME 8.2 fl (7.5-11.1); PLATELET COUNT 232 10^3/uL (134-434); RBC 3.53 M/mm3 (4.00-5.60); RDW 14.8 % (11.9-15.9); WHITE BLOOD COUNT 3.3 K/mm3 (4.0-10.0)
[2023-09-30 15:05] LABS: CALCIUM 8.9 mg/dL (8.5-10.1)
[2023-09-30 15:06] LABS: ALBUMIN 3.2 g/dl (3.4-5.0); ANION GAP 2 mmol/L (4-13); CO2 31 mmol/L (21-32); GLUCOSE,RANDOM 106 mg/dL (74-106)
[2023-09-30 15:08] LABS: CREATININE 0.8 mg/dL (0.55-1.3); SGPT/ALT 69 U/L (13-61)
[2023-09-30 15:09] LABS: BILIRUBIN,TOTAL 0.4 mg/dL (0.2-1); SGOT/AST 69 U/L (15-37)
[2023-09-30 15:10] LABS: ALK PHOS 70 U/L (45-117)
[2023-09-30] MEDS: METHOCARBAMOL 500 MG TABLET PO PRN (22:29)
[2023-10-01] MEDS: diazePAM 5 MG TABLET PO SCH (05:40)
[2023-10-01] MEDS: IBUPROFEN 600 MG TABLET (FP) PO PRN (15:41)
[2023-10-01] MEDS: METHYL SALICYLATE/MENTHOL OINT 30 GM TUBE TP SCH (22:17)
[2023-10-01] MEDS: hydrOXYzine PAMOATE 25 MG CAPSULE (FP) PO PRN (22:19)
[2023-10-02] MEDS: diazePAM 5 MG TABLET PO SCH (06:26)
[2023-10-03] MEDS: diazePAM 5 MG TABLET PO ONE (05:17)
[2023-10-03 08:42] VITALS: BP 108/66; PULSE 86; RESP 18; TEMP 97.1
== END 2023-10-03 09:51 | disposition home or self-care (01) | DRG 897 ==
LOC: YASAS 13:37 → Y6N 15:35
PROVIDERS: ADMIT Allergy & Immunology; ATTEND Surgery
PROC: HZ2ZZZZ Detoxification Services for Substance Abuse Treatment (ICD-10-PCS; principal; 2023-09-29)
DX: F10.230 Alcohol dependence with withdrawal, uncomplicated (principal); F14.20 Cocaine dependence, uncomplicated; F17.210 Nicotine dependence, cigarettes, uncomplicated; G47.00 Insomnia, unspecified; R76.8 Other specified abnormal immunological findings in serum; Z86.19 Personal history of other infectious and parasitic diseases
CPT/HCPCS: 36415; 80053; 80305; 80307; 85027; 86593; 86780; 93005; 93010

== ENCOUNTER 2023-12-08 18:00 | Inpatient (IN) | payer OTHER ==
[2023-12-08 18:27] VITALS: BMI 19.9
[2023-12-08] MEDS ORDERED: LOPERAMIDE HCL 2 MG CAPSULE PO PRN (19:11)
[2023-12-08] MEDS ORDERED: NICOTINE POLACRILEX 2 MG LOZENGE BC PRN (19:11)
[2023-12-08] MEDS ORDERED: MAGNESIUM HYDROX 2400MG/30ML ORAL SUSPENSION 30 ML CUP PO PRN (19:11)
[2023-12-08] MEDS ORDERED: ACETAMINOPHEN 325 MG TABLET (FP) PO PRN (19:11)
[2023-12-08] MEDS ORDERED: guaiFENesin 600 MG TABLET.ER (FP) PO PRN (19:11)
[2023-12-08] MEDS ORDERED: P-EPHED 60MG/TRIPROLIDI 2.5MG TABLET PO PRN (19:11)
[2023-12-08] MEDS ORDERED: BENZONATATE 200 MG CAPSULE PO PRN (19:11)
[2023-12-08] MEDS: MELATONIN 5 MG TABLETS PO SCH (22:43)
[2023-12-08] MEDS: THIAMINE 100 MG TABLET PO SCH (22:43)
[2023-12-08] MEDS: DOCUSATE SODIUM 100 MG CAPSULE (FP) PO PRN (22:45)
[2023-12-09 01:29] LABS: EPI CELLS 31 /uL (0-25.1); HYALINE CASTS 8 /uL (0-3.1); PH,URINE 5.5 (5.0-8.0); URINE APPEARANCE TURBID; URINE BACTERIA 137 /uL (0-1359); URINE BILIRUBIN NEGATIVE (NEGATIVE); URINE COLOR DK YELLOW; URINE GLUCOSE (UA) NEGATIVE (NEGATIVE); URINE KETONE TRACE (NEGATIVE); URINE LEUK ESTERASE 1+ (NEGATIVE); URINE NITRITE NEGATIVE (NEGATIVE); URINE PROTEIN TRACE (NEGATIVE); URINE RBC 9 /uL (0-23.9); URINE WBC 74 /uL (0-25.8)
[2023-12-09] MEDS: PRENATAL VITAMINS W/ FOLIC ACID TABLET (FP) PO SCH (10:20)
[2023-12-09] MEDS: MAG HYDROX/AL HYDROX/SIMETH 30 ML UNIT-DOSE CUP PO PRN (14:14)
[2023-12-09] MEDS: POLYETHYLENE GLYCOL (HEALTHYLAX) 3350 17 GM PACKET PO PRN (19:26)
[2023-12-10] MEDS: BISACODYL 5 MG TABLET.DR (FP) PO PRN (07:18)
[2023-12-10] MEDS: LACTULOSE 20 GM/30 ML UDC (FOR ORAL USE ONLY) PO ONE ×2 (10:33→14:20)
[2023-12-10] MEDS: IBUPROFEN 600 MG TABLET (FP) PO PRN (16:52)
[2023-12-11] MEDS: BENZOCAINE/MENTHOL (CHLORASEPTIC ) LOZENGE MM PRN (16:33)
[2023-12-12] MEDS: IBUPROFEN 400 MG TABLET (FP) PO PRN (09:17)
[2023-12-12 12:26] LABS: BASO % 0.5 % (0-2.0); EOS % 1.8 % (0-4.5); HEMATOCRIT 41.5 % (35.4-49); HEMOGLOBIN 14.5 GM/dL (11.7-16.9); LYMPH % 37.8 % (8-40); MCH 33.6 pg (25.7-33.7); MCHC 34.9 g/dl (32.0-35.9); MEAN CELL VOLUME 96.5 fl (80-96); MONO % 8.1 % (3.8-10.2); NEUT % 51.8 % (42.8-82.8); PLATELET COUNT 374 10^3/uL (134-434); WHITE BLOOD COUNT 4.2 K/mm3 (4.0-10.0)
[2023-12-12 12:27] LABS: PROTHROMBIN TIME (PATIENT) 11.3 SEC (9.7-13.0)
[2023-12-12 12:29] LABS: POTASSIUM 3.9 mmol/L (3.5-5.1)
[2023-12-12 12:34] LABS: BLOOD UREA NITROGEN 7.8 mg/dL (7-18); CALCIUM 9.8 mg/dL (8.5-10.1); MAGNESIUM 2.3 mg/dL (1.8-2.4)
[2023-12-12 12:35] LABS: ALBUMIN 4.3 g/dl (3.4-5.0)
[2023-12-12 12:37] LABS: CREATININE 0.9 mg/dL (0.55-1.3)
[2023-12-12 12:39] LABS: BILIRUBIN,TOTAL 0.6 mg/dL (0.2-1); TOT PROT 7.9 g/dl (6.4-8.2)
[2023-12-14] MEDS: METHYL SALICYLATE/MENTHOL OINT 30 GM TUBE TP SCH (12:24)
[2023-12-14] MEDS: traZODone HCL 50 MG TABLET (FP) PO SCH (21:10)
[2023-12-14] MEDS: BACLOFEN 10 MG TABLET (FP) PO SCH (21:10)
[2023-12-14] MEDS ORDERED: traZODone HCL 50 MG TABLET (FP) PO ONE (22:00)
[2023-12-16] MEDS: LACTULOSE 20 GM/30 ML UDC (FOR ORAL USE ONLY) PO PRN (10:23)
[2023-12-19 06:55] VITALS: RESP 16
[2023-12-20] MEDS ORDERED: AMMONIUM LACTATE 12% LOTION 225 GM BOTTLE TP PRN (13:07)
[2023-12-21 06:48] VITALS: BP 126/81; PULSE 86; TEMP 97.8
== END 2023-12-21 09:04 | disposition home or self-care (01) | DRG 895 ==
LOC: YASAS 18:00 → Y3NR 19:21 → Y3W 12-10 15:42
PROVIDERS: ADMIT Allergy & Immunology; ATTEND Psychiatry & Neurology Pain Medicine
PROC: HZ42ZZZ Group Counseling for Substance Abuse Treatment, Cognitive-Behavioral (ICD-10-PCS; principal; 2023-12-08)
DX: F10.20 Alcohol dependence, uncomplicated (principal); F14.20 Cocaine dependence, uncomplicated; F17.210 Nicotine dependence, cigarettes, uncomplicated; G47.00 Insomnia, unspecified; K59.00 Constipation, unspecified; M17.12 Unilateral primary osteoarthritis, left knee; S99.812D Other specified injuries of left ankle, subsequent encounter; W10.9XXD Fall (on) (from) unspecified stairs and steps, subsequent encounter
CPT/HCPCS: 36415; 73610-TC-LT-FY; 80053; 80305; 80307; 81003; 82140; 82652; 83735; 85025; 85610; 86803; 87811; J0475

== ENCOUNTER 2024-03-22 16:58 | Inpatient (IN) | payer OTHER ==
[2024-03-22 18:35] VITALS: BMI 19.9
[2024-03-22] MEDS ORDERED: BENZOCAINE/MENTHOL (CHLORASEPTIC ) LOZENGE MM PRN (19:53)
[2024-03-22] MEDS ORDERED: guaiFENesin 600 MG TABLET.ER (FP) PO PRN (19:53)
[2024-03-22] MEDS ORDERED: MAG HYDROX/AL HYDROX/SIMETH 30 ML UNIT-DOSE CUP PO PRN (19:53)
[2024-03-22] MEDS ORDERED: BENZONATATE 200 MG CAPSULE PO PRN (19:53)
[2024-03-22] MEDS ORDERED: DICYCLOMINE HCL 10 MG CAPSULE PO PRN (19:53)
[2024-03-22] MEDS ORDERED: NALOXONE (NARCAN) HCL 4 MG/0.1 ML SPRAY NS PRN (19:53)
[2024-03-22] MEDS ORDERED: LOPERAMIDE HCL 2 MG CAPSULE PO PRN (19:53)
[2024-03-22] MEDS ORDERED: hydrOXYzine PAMOATE 25 MG CAPSULE (FP) PO PRN (19:53)
[2024-03-22] MEDS ORDERED: NALOXONE HCL 0.4 MG/ML VIAL IM PRN (19:53)
[2024-03-22] MEDS ORDERED: POLYETHYLENE GLYCOL (HEALTHYLAX) 3350 17 GM PACKET PO PRN (19:53)
[2024-03-22] MEDS ORDERED: BISMUTH SUBSALICYLATE 524 MG/30 ML PO PRN (19:53)
[2024-03-22] MEDS ORDERED: MAGNESIUM HYDROX 2400MG/30ML ORAL SUSPENSION 30 ML CUP PO PRN (19:53)
[2024-03-22] MEDS ORDERED: ONDANSETRON *ODT* 4 MG TABLET SL PRN (19:53)
[2024-03-22] MEDS ORDERED: MELATONIN 5 MG TABLETS ONE (22:18)
[2024-03-22] MEDS: DOCUSATE SODIUM 100 MG CAPSULE (FP) PO SCH (22:20)
[2024-03-22] MEDS: MELATONIN 5 MG TABLETS PO SCH (22:21)
[2024-03-22] MEDS: THIAMINE 100 MG TABLET PO SCH (22:21)
[2024-03-23] MEDS ORDERED: chlordiazePOXIDE HCL 25 MG CAPSULE PO PRN (09:39)
[2024-03-23] MEDS ORDERED: PATIENT'S OWN MEDICATION (NON-FORMULARY) (Ammonium Lactate Cream 1 APPLIC Tube) TP SCH (10:00)
[2024-03-23] MEDS ORDERED: chlordiazePOXIDE HCL 25 MG CAPSULE ONE (10:50)
[2024-03-23] MEDS ORDERED: IBUPROFEN 400 MG TABLET (FP) PO ONE (10:50)
[2024-03-23] MEDS: chlordiazePOXIDE HCL 25 MG CAPSULE PO SCH (10:51)
[2024-03-23] MEDS: IBUPROFEN 400 MG TABLET (FP) PO PRN (10:51)
[2024-03-23] MEDS ORDERED: PRENATAL VITAMINS W/ FOLIC ACID TABLET (FP) PO ONE (10:51)
[2024-03-23] MEDS: PRENATAL VITAMINS W/ FOLIC ACID TABLET (FP) PO SCH (10:51)
[2024-03-23] MEDS: LACTULOSE 20 GM/30 ML UDC (FOR ORAL USE ONLY) PO PRN (11:56)
[2024-03-23] MEDS: AMMONIUM LACTATE 12% CREAM 140 GM TUBE TP SCH (12:09)
[2024-03-23] MEDS: ACETAMINOPHEN 325 MG TABLET (FP) PO PRN (15:40)
[2024-03-24] MEDS: IBUPROFEN 600 MG TABLET (FP) PO PRN (10:11)
[2024-03-24] MEDS: traZODone HCL 50 MG TABLET (FP) PO SCH (21:15)
[2024-03-25] MEDS: chlordiazePOXIDE HCL 25 MG CAPSULE PO SCH (05:42)
[2024-03-26] MEDS ORDERED: chlordiazePOXIDE HCL 10 MG CAPSULE PO PRN
[2024-03-26] MEDS: chlordiazePOXIDE HCL 10 MG CAPSULE PO SCH (05:36)
[2024-03-27] MEDS: chlordiazePOXIDE HCL 10 MG CAPSULE PO SCH (05:29)
[2024-03-27] MEDS: METHOCARBAMOL 500 MG TABLET PO PRN (21:52)
[2024-03-28] MEDS: chlordiazePOXIDE HCL 10 MG CAPSULE PO ONE (05:57)
[2024-03-28 08:53] VITALS: BP 102/69; PULSE 67; RESP 18; TEMP 97.3
== END 2024-03-28 09:29 | disposition home or self-care (01) | DRG 897 ==
LOC: YASAS 16:58 → Y3N 03-23 11:27
PROVIDERS: ADMIT Surgery; ATTEND Surgery
PROC: HZ2ZZZZ Detoxification Services for Substance Abuse Treatment (ICD-10-PCS; principal; 2024-03-23)
DX: F10.230 Alcohol dependence with withdrawal, uncomplicated (principal); F14.20 Cocaine dependence, uncomplicated; F17.210 Nicotine dependence, cigarettes, uncomplicated; G47.00 Insomnia, unspecified; M17.12 Unilateral primary osteoarthritis, left knee; Z86.19 Personal history of other infectious and parasitic diseases
CPT/HCPCS: 80305; 80307; 93005; 93010

== ENCOUNTER 2024-06-04 13:17 | Inpatient (IN) | payer OTHER ==
[2024-06-04 13:42] VITALS: BMI 20.9
[2024-06-04] MEDS ORDERED: MAG HYDROX/AL HYDROX/SIMETH 30 ML UNIT-DOSE CUP PO PRN (15:00)
[2024-06-04] MEDS ORDERED: ACETAMINOPHEN 325 MG TABLET (FP) PO PRN (15:00)
[2024-06-04] MEDS ORDERED: guaiFENesin 600 MG TABLET.ER (FP) PO PRN (15:00)
[2024-06-04] MEDS ORDERED: BENZOCAINE/MENTHOL (CHLORASEPTIC ) LOZENGE MM PRN (15:00)
[2024-06-04] MEDS ORDERED: IBUPROFEN 400 MG TABLET (FP) PO PRN (15:00)
[2024-06-04] MEDS ORDERED: hydrOXYzine PAMOATE 25 MG CAPSULE (FP) PO PRN (15:00)
[2024-06-04] MEDS ORDERED: DICYCLOMINE HCL 10 MG CAPSULE PO PRN (15:00)
[2024-06-04] MEDS ORDERED: POLYETHYLENE GLYCOL (HEALTHYLAX) 3350 17 GM PACKET PO PRN (15:00)
[2024-06-04] MEDS ORDERED: LOPERAMIDE HCL 2 MG CAPSULE PO PRN (15:00)
[2024-06-04] MEDS ORDERED: diazePAM 5 MG TABLET PO PRN (15:00)
[2024-06-04] MEDS ORDERED: BENZONATATE 200 MG CAPSULE PO PRN (15:00)
[2024-06-04] MEDS ORDERED: ONDANSETRON *ODT* 4 MG TABLET SL PRN (15:00)
[2024-06-04] MEDS ORDERED: NALOXONE (NARCAN) HCL 4 MG/0.1 ML SPRAY NS PRN (15:00)
[2024-06-04] MEDS ORDERED: MAGNESIUM HYDROX 2400MG/30ML ORAL SUSPENSION 30 ML CUP PO PRN (15:00)
[2024-06-04] MEDS ORDERED: BISMUTH SUBSALICYLATE 262 MG/15 ML BTL PO PRN (15:00)
[2024-06-04] MEDS: NALTREXONE HCL 50 MG TABLET PO ONE ×2 (18:06→18:31)
[2024-06-04] MEDS: MELATONIN 5 MG TABLETS PO SCH (22:46)
[2024-06-04] MEDS: MIRTAZAPINE 15 MG TABLET (FP) PO SCH (22:46)
[2024-06-04] MEDS: THIAMINE 100 MG TABLET PO SCH (22:46)
[2024-06-04] MEDS: diazePAM 5 MG TABLET PO SCH (22:48)
[2024-06-05] MEDS: NALTREXONE HCL 50 MG TABLET PO SCH (10:18)
[2024-06-05] MEDS: PRENATAL VITAMINS W/ FOLIC ACID TABLET (FP) PO SCH (10:18)
[2024-06-06] MEDS: diazePAM 5 MG TABLET PO SCH (05:53)
[2024-06-06] MEDS: LACTULOSE 20 GM/30 ML UDC (FOR ORAL USE ONLY) PO ONE (10:36)
[2024-06-06 15:56] LABS: HEMATOCRIT 37.9 % (35.4-49); HEMOGLOBIN 12.7 GM/dL (11.7-16.9); MCH 31.7 pg (25.7-33.7); MCHC 33.4 g/dl (32.0-35.9); MEAN CELL VOLUME 94.7 fl (80-96); MEAN PLT VOLUME 8.5 fl (7.5-11.1); PLATELET COUNT 238 10^3/uL (134-434); RDW 15.2 % (11.9-15.9); WHITE BLOOD COUNT 3.6 K/mm3 (4.0-10.0)
[2024-06-06 18:27] LABS: POTASSIUM 5.1 mmol/L (3.5-5.1)
[2024-06-06 18:32] LABS: BLOOD UREA NITROGEN 9.4 mg/dL (7-18)
[2024-06-06 18:34] LABS: CALCIUM 9.4 mg/dL (8.5-10.1)
[2024-06-06 18:35] LABS: ALBUMIN 3.4 g/dl (3.4-5.0)
[2024-06-06 18:37] LABS: CREATININE 0.9 mg/dL (0.55-1.3)
[2024-06-06 18:38] LABS: BILIRUBIN,TOTAL 0.2 mg/dL (0.2-1); TOT PROT 6.3 g/dl (6.4-8.2)
[2024-06-06] MEDS: IBUPROFEN 600 MG TABLET (FP) PO PRN (19:48)
[2024-06-06] MEDS: METHOCARBAMOL 500 MG TABLET PO PRN (22:05)
[2024-06-07] MEDS: diazePAM 5 MG TABLET PO SCH (06:04)
[2024-06-08] MEDS: diazePAM 5 MG TABLET PO ONE (06:05)
[2024-06-08 07:08] VITALS: RESP 16
[2024-06-08] MEDS: NALOXONE (NYS OPIOID OVERDOSE PROGRAM) 4 MG/0.1 ML SPRAY NS SCH (08:38)
[2024-06-08 09:32] VITALS: BP 124/87; PULSE 75; TEMP 97.7
[2024-06-08] MEDS: LACTULOSE 20 GM/30 ML UDC (FOR ORAL USE ONLY) PO PRN (10:08)
== END 2024-06-08 10:44 | disposition home or self-care (01) | DRG 897 ==
LOC: YASAS 13:17 → Y6N 15:29
PROVIDERS: ADMIT Allergy & Immunology; ATTEND Surgery
PROC: HZ2ZZZZ Detoxification Services for Substance Abuse Treatment (ICD-10-PCS; principal; 2024-06-04)
DX: F10.230 Alcohol dependence with withdrawal, uncomplicated (principal); F14.20 Cocaine dependence, uncomplicated; F19.282 Other psychoactive substance dependence with psychoactive substance-induced sleep disorder; F19.280 Other psychoactive substance dependence with psychoactive substance-induced anxiety disorder; F17.210 Nicotine dependence, cigarettes, uncomplicated; F32.A Depression, unspecified; K29.00 Acute gastritis without bleeding; M17.12 Unilateral primary osteoarthritis, left knee; R63.6 Underweight; Z68.21 Body mass index [BMI] 21.0-21.9, adult
CPT/HCPCS: 36415; 80053; 80305; 80307; 85027; 86593; 86780